=== PATIENT | female | born 1990 | race Caucasian/White ===

== ENCOUNTER 2017-05-27 18:29 | Emergency (ER) | payer SELFPAY ==
[~2017-05-27] VITALS: Ht 157.5 cm; Wt 104.0 kg
[2017-05-27 18:53] VITALS: BP 126/78
--- NOTE | 2017-05-27 20:59 | NUR ---
PT TAKEN TO BED 7
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
--- NOTE | 2017-05-27 21:30 | NUR ---
CLYDE AGRAWAL AT BEDSIDE EVALUATING PT.
[2017-05-27 22:17] VITALS: BP 124/67
--- NOTE | 2017-05-27 22:17 | NUR ---
Patient discharged with v/s stable. Written and verbal after care instructions given and explained. Patient verbalized understanding. Ambulatory with steady gait. All questions addressed prior to discharge. Advised to follow up with PMD.
== END 2017-05-27 22:17 | disposition home or self-care (01) ==
LOC: MED 18:29
DX: S29.011A Strain of muscle and tendon of front wall of thorax, initial encounter (principal); Z90.89 Acquired absence of other organs; V49.50XA Passenger injured in collision with unspecified motor vehicles in traffic accident, initial encounter; Y93.89 Activity, other specified; Y92.488 Other paved roadways as the place of occurrence of the external cause; Y99.8 Other external cause status
CPT/HCPCS: 71010; 99283